=== PATIENT | female | born 1995 | race Caucasian/White ===

== ENCOUNTER 2019-02-16 16:00 | Emergency (ER) | payer OTHER ==
--- NOTE | 2019-02-16 16:08 | PDOC ---
History of Present Illness - General Chief Complaint: Pain Stated Complaint: LEFT LOWER MID BACK PAIN Time Seen by Provider: 02/16/19 16:02 - History of Present Illness Initial Comments: Ms. Damon is a 23 y/o female with PMH significant for asthma, presenting today with left flank pain. Pain began last night and has increased in severity. Describes the pain as a pressure sensation, with occasional 'stabbing' sensations. Pain increases with movements and did not decrease after a dose of ibuprofen earlier today. Pt denies dysuria, but states that her urine smells and was an orange color this morning. Her last period began on 02/09. Pt endorses nausea since last night, chills and slight lightheadedness. Denies fever, vomiting, diarrhea or headaches. Past History - Past Medical History Allergies/Adverse Reactions: Allergies Allergy/AdvReac Type Severity Reaction Status Date / Time Penicillins Allergy Verified 02/16/19 16:01 Home Medications: Ambulatory Orders Dupilumab [Dupixent] 200 mg IM ASDIR 02/16/19 Escitalopram Oxalate [Lexapro -] 20 mg PO DAILY 02/16/19 Ibuprofen 400 mg PO ONCE 02/16/19 Naproxen 500 mg PO BID PRN #12 tablet 02/16/19 Review of Systems - Review of Systems Comments:: GENERAL/CONSTITUTIONAL: No fever or chills. No weakness._ HEAD, EYES, EARS, NOSE AND THROAT: No change in vision. No change in hearing. No sore throat._ CARDIOVASCULAR: No chest pain or shortness of breath_ RESPIRATORY: Denies cough, hemoptysis_ GASTROINTESTINAL: No nausea, vomiting, diarrhea or constipation._ GENITOURINARY: No dysuria. Reports frequency and orange colored urine. MUSCULOSKELETAL: Reports left flank pain. SKIN: No rash_ NEUROLOGIC: No headache, vertigo, loss of consciousness, or change in strength/ sensation._ ENDOCRINE: No increased thirst. No abnormal weight change_ HEMATOLOGIC/LYMPHATIC: No anemia, easy bleeding, or history of blood clots._ ALLERGIC/IMMUNOLOGIC: No hives or skin allergy._ *Physical Exam - Physical Exam Comments: GENERAL: Awake, alert, and oriented to person/place/time, in no acute distress_ HEAD: No signs of trauma, normocephalic, atraumatic _ EYES: PERRLA, EOMI, sclera anicteric, conjunctiva clear_ ENT: Hearing grossly normal, nares patent, oropharynx clear without exudates. No uvular deviation. Moist mucosa_ NECK: Normal ROM, supple, no lymphadenopathy, JVD, or masses_ LUNGS: No distress, speaks in full sentences, clear to auscultation bilaterally _ HEART: Regular rate and rhythm, normal S1 and S2, no murmurs appreciated, peripheral pulses normal and equal bilaterally._ ABDOMEN: Soft, nontender, normoactive bowel sounds. No guarding, no rebound. No masses_ BACK: Left flank TTP. No bruising. No masses. EXTREMITIES: Normal inspection, Normal range of motion, no edema. No clubbing or cyanosis_ NEUROLOGICAL: Cranial nerves II through XII grossly intact. Normal speech, normal gait, no focal sensorimotor deficits _ SKIN: Warm, Dry, normal turgor, no rashes or lesions noted_ PELVIC: External inspection shows no ulcers, lesions, or rash. Os closed. No bleeding or purulent discharge. No CMT. Left adnexal tenderness present. ED Treatment Course - LABORATORY CBC & Chemistry Diagram: 02/16/19 17:05 02/16/19 17:05 Medical Decision Making - Medical Decision Making 02/16/19 16:08 23F hx of asthma, presenting today with left sided flank pain. -CBC, CMP -UA, UCx, Upreg -CT spiral renal stone -fluids, tylenol, zofran 02/16/19 17:33 Labs reviewed and wnl. UA does not show signs of UTI. 02/16/19 18:30 Left adnexal tenderness on pelvic exam. -will order TVUS 02/16/19 18:40 CT abd pelv shows no acute abdominal or pelvic pathology, no renal stones or evidence of obstructive uropathy. 02/16/19 1900 Pt signed out to Dr. Faria. Discharge - Discharge Information Problems reviewed: Yes Clinical Impression/Diagnosis: Back pain Qualifiers: Back pain location: low back pain Chronicity: acute Back pain laterality: midline Sciatica presence: without sciatica Qualified Code(s): M54.5 - Low back pain Condition: Good Disposition: HOME - Admission No - Additional Discharge Information Prescriptions: Naproxen 500 mg PO BID PRN #12 tablet PRN Reason: Pain - Follow up/Referral - Patient Discharge Instructions Patient Printed Discharge Instructions: DI for Low Back Pain - Post Discharge Activity
[2019-02-16 16:18] VITALS: BP 118/82; PULSE 89; TEMP 98; BMI 28.9
[2019-02-16] MEDS ORDERED: ACETAMINOPHEN 1000 MG/100 ML VIAL (NON FORMULARY) IVPB ONE (17:09)
[2019-02-16] MEDS ORDERED: SODIUM CHLORIDE 0.9% 500 ML INFUS.BAG IV ONE (17:09)
[2019-02-16] MEDS ORDERED: ONDANSETRON 4 MG/2 ML VIAL IVPUSH ONE (17:09)
[2019-02-16] MEDS ORDERED: ACETAMINOPHEN INJECTION 100 ML IVPB ONE (17:10)
[2019-02-16] MEDS ORDERED: ONDANSETRON 4 MG/2 ML VIAL ONE (17:10)
[2019-02-16 17:24] LABS: HEMOGLOBIN 13.9 GM/dl (10.7-15.3); MCH 29.3 pg (25.7-33.7); MONO % 6.1 % (3.8-10.2); RBC 4.76 M/mm3 (3.60-5.2)
[2019-02-16 17:26] LABS: BASO % 0.7 % (0-2.0); EOS % 17.8 % (0-4.5); LYMPH % 26.4 % (8-40); MCHC 33.2 g/dl (32.0-36.0); MEAN CELL VOLUME 88.3 fl (80-96); PLATELET COUNT 235 K/MM3 (134-434); RDW 12.7 % (11.6-15.6); WHITE BLOOD COUNT 10.4 K/mm3 (4.0-10.8)
[2019-02-16 17:31] LABS: ALBUMIN 4.5 g/dl (3.4-5.0); BILIRUBIN,TOTAL 0.4 mg/dl (0.2-1); CALCIUM 9.4 mg/dl (8.5-10); CREATININE 0.7 mg/dl (0.55-1.3); POTASSIUM 3.7 mmol/L (3.5-5.1); TOT PROT 7.5 g/dl (6.4-8.2)
--- NOTE | 2019-02-16 17:39 | PDOC ---
Attending Attestation - Resident Resident Name: Efrain Tanner - ED Attending Attestation I have performed the following: I have examined & evaluated the patient, The case was reviewed & discussed with the resident, I agree w/resident's findings & plan, Exceptions are as noted - HPI HPI: 02/16/19 17:36 23-year-old female history of eczema and asthma here today complaining of left flank left lower quadrant left upper quadrant pain. Patient states her symptoms started yesterday evening described as sharp and intermittent she does have associated nausea and vomiting. Denies any fever she has had some strong smelling urine but denies dysuria no noted hematuria denies any vaginal discharge or any concerns for STD. Her last period was 3 weeks ago states she is not currently no known history of renal colic however she does have a family history of kidney stones. She is on immune suppressant for her eczema - Physicial Exam PE: 02/16/19 17:37 awake alert lungs clear bilat heart rrr nomrg abd soft mild left mid quad, left upper quad ttp, pos left cva tenderness. skin warm and dry. nuero alert oriented x 3. 02/16/19 18:22 pelvic exam no discharge noted in vaginal vault, mild ttp left adnexal. ua negative. labs normal. ct read pending. consider tvus left ovary if ct unremarkable. - Medical Decision Making 02/16/19 17:38 23 yo with left sided abd/ flank pain, differential renal colic, uti pyelo. plan bedside renal us. possible ct a/p focused ED us renal, mild hydro left kidney. right kidney normal. bladder nondistended. will obtain spiral ct r/o stone. ua pending. ucg. basic labs. given zofran and pain control ivf. 02/16/19 19:13 ct a/p unremarkable. will obtain tvus r/o torsion/ free fluid. uua and labs unremarakble. signed out to oncoming physician pending TVUS.
[2019-02-16] MEDS ORDERED: KETOROLAC TROMETHAMINE 15 MG/ML VIAL IVPUSH ONE (20:52)
[2019-02-16] MEDS ORDERED: KETOROLAC TROMETHAMINE 15 MG/ML VIAL ONE (20:54)
--- NOTE | 2019-02-16 21:03 | PDOC ---
History of Present Illness - General Chief Complaint: Pain Stated Complaint: LEFT LOWER MID BACK PAIN Time Seen by Provider: 02/16/19 16:02 Past History - Past Medical History Allergies/Adverse Reactions: Allergies Allergy/AdvReac Type Severity Reaction Status Date / Time Penicillins Allergy Verified 02/16/19 16:01 Home Medications: Ambulatory Orders Dupilumab [Dupixent] 200 mg IM ASDIR 02/16/19 Escitalopram Oxalate [Lexapro -] 20 mg PO DAILY 02/16/19 Ibuprofen 400 mg PO ONCE 02/16/19 Naproxen 500 mg PO BID PRN #12 tablet 02/16/19 COPD: No Psychiatric Problems: Yes - Psycho Social/Smoking Cessation Hx Smoking History: Current every day smoker Have you smoked in the past 12 months: Yes Number of Cigarettes Smoked Daily: 0 Information on smoking cessation initiated: Yes Hx Alcohol Use: No Drug/Substance Use Hx: No *Physical Exam - Vital Signs Last Vital Signs Temp Pulse Resp BP Pulse Ox 98 F 89 20 118/82 97 02/16/19 16:01 02/16/19 16:01 02/16/19 16:01 02/16/19 16:01 02/16/19 16:01 ED Treatment Course - LABORATORY CBC & Chemistry Diagram: 02/16/19 17:05 02/16/19 17:05 - ADDITIONAL ORDERS Additional order review: Laboratory Results 02/16/19 02/16/19 02/16/19 17:05 17:00 17:00 Sodium 135 L Potassium 3.7 Chloride 100 Carbon Dioxide 24 Anion Gap 11 BUN 11.0 Creatinine 0.7 Est GFR (CKD-EPI)AfAm 143.54 Est GFR (CKD-EPI)NonAf 123.85 Random Glucose 95 Calcium 9.4 Total Bilirubin 0.4 AST 22 ALT 17 Alkaline Phosphatase 82 Total Protein 7.5 Albumin 4.5 Urine Color Yellow Urine Appearance Clear Urine pH 7.0 Urine Protein Trace Urine Glucose (UA) Negative Urine Ketones 2+ H Urine Blood Negative Urine Nitrite Negative Urine Bilirubin Negative Urine Urobilinogen 0.2 Ur Leukocyte Esterase Negative Urine HCG, Qual Negative 02/16/19 17:05 RBC 4.76 MCV 88.3 MCHC 33.2 RDW 12.7 MPV 11.0 Neutrophils % 49.0 Lymphocytes % 26.4 Monocytes % 6.1 Eosinophils % 17.8 H Basophils % 0.7 - Medications Given in the ED: ED Medications Discontinued Medications Generic Name Dose Route Start Last Admin Trade Name Ramona PRN Reason Stop Dose Admin Acetaminophen 1,000 mg 02/16/19 17:09 02/16/19 17:13 Ofirmev Injection - IVPB 02/16/19 17:10 1,000 mg ONCE ONE Administration Ketorolac Tromethamine 15 mg 02/16/19 20:52 02/16/19 20:56 Toradol Injection - IVPUSH 02/16/19 20:53 15 mg ONCE ONE Administration Ondansetron HCl 4 mg 02/16/19 17:09 02/16/19 17:13 Zofran Injection IVPUSH 02/16/19 17:10 4 mg ONCE ONE Administration Sodium Chloride 1,000 ml 02/16/19 17:09 02/16/19 17:13 Normal Saline - IV 02/16/19 17:10 1,000 ml ONCE ONE Administration Medical Decision Making - Medical Decision Making 02/17/19 06:23 received on signout imaging, labs reviewed no specific etiology of pain discovered nsaids, PCP fu Discharge - Discharge Information Problems reviewed: Yes Clinical Impression/Diagnosis: Back pain Qualifiers: Back pain location: low back pain Chronicity: acute Back pain laterality: midline Sciatica presence: without sciatica Qualified Code(s): M54.5 - Low back pain Condition: Good Disposition: HOME - Admission No - Additional Discharge Information Prescriptions: Naproxen 500 mg PO BID PRN #12 tablet PRN Reason: Pain - Follow up/Referral - Patient Discharge Instructions Patient Printed Discharge Instructions: DI for Low Back Pain - Post Discharge Activity
== END 2019-02-16 21:05 | disposition home or self-care (01) ==
LOC: FER 16:00
PROC: 3E0337Z Introduction of Electrolytic and Water Balance Substance into Peripheral Vein, Percutaneous Approach (ICD-10-PCS; principal; 2019-02-16)
PROC: 3E033NZ Introduction of Analgesics, Hypnotics, Sedatives into Peripheral Vein, Percutaneous Approach (ICD-10-PCS; 2019-02-16)
PROC: 3E0337Z Introduction of Electrolytic and Water Balance Substance into Peripheral Vein, Percutaneous Approach (ICD-10-PCS; 2019-02-16)
PROC: 3E033GC Introduction of Other Therapeutic Substance into Peripheral Vein, Percutaneous Approach (ICD-10-PCS; 2019-02-16)
DX: M54.5 Low back pain (principal)
CPT/HCPCS: 36415; 74176-TC; 76830-TC; 80053; 81003; 84703; 85025; 87086; 99284-25; J0131

== ENCOUNTER 2019-04-09 16:52 | Emergency (ER) | payer OTHER ==
[2019-04-09] MEDS ORDERED: ONDANSETRON 4 MG/2 ML VIAL IVPB ONE (16:59)
[2019-04-09] MEDS ORDERED: SODIUM CHLORIDE 1,000 ML IV STA (16:59)
[2019-04-09 17:02] VITALS: BP 109/59; PULSE 90; TEMP 98.2; BMI 30.2
[2019-04-09] MEDS ORDERED: ONDANSETRON 4 MG/2 ML VIAL ONE (17:02)
[2019-04-09 17:33] LABS: EPITHELIAL CELLS MODERATE /hpf
--- NOTE | 2019-04-09 17:41 | PDOC ---
Documentation entered by Enedelia Carr SCRIBE, acting as scribe for Albaro Ramires MD. Albaro Ramires MD: This documentation has been prepared by the sherifeLilly Joy, SCRIBE, under my direction and personally reviewed by me in its entirety. I confirm that the documentation accurately reflects all work, treatment, procedures, and medical decision making performed by me. History of Present Illness - General Chief Complaint: Nausea/Vomiting Stated Complaint: n/v Time Seen by Provider: 04/09/19 16:53 History Source: Patient Exam Limitations: No Limitations - History of Present Illness Initial Comments: 04/09/19 17:09 The patient is a 23 year old female with significant past medical history of eczema and asthma who presents to the ED with nausea, vomiting, diarrhea and abdominal pain that started this morning. As per patient, she endorses multiple episodes of vomiting, NBNB after eating or drinking and states that everything comes out. Patient reports feeling chills and pain around her epigastric area. Patient adds that she took pepto-bismol with no relief. The patient denies sick contact. Denies recent travel. Denies burning urination. Denies . Denies any other symptoms. Allergies: Penicillins Past History - Past Medical History Allergies/Adverse Reactions: Allergies Allergy/AdvReac Type Severity Reaction Status Date / Time Penicillins Allergy Verified 04/09/19 16:53 Home Medications: Ambulatory Orders Escitalopram Oxalate [Lexapro -] 20 mg PO DAILY 02/16/19 Ondansetron [Zofran *Odt*] 4 mg SL TID #10 od.tablet 04/09/19 COPD: No Psychiatric Problems: Yes - Psycho Social/Smoking Cessation Hx Smoking History: Current every day smoker Have you smoked in the past 12 months: Yes Number of Cigarettes Smoked Daily: 1 Information on smoking cessation initiated: Yes Hx Alcohol Use: Yes (ocasional) Drug/Substance Use Hx: Yes (marijuana) Review of Systems - Review of Systems Able to Perform ROS?: Yes Comments:: 04/09/19 17:09 GENERAL/CONSTITUTIONAL: +Chills. No fever or weakness. HEAD, EYES, EARS, NOSE AND THROAT: No change in vision. No ear pain or discharge. No sore throat. CARDIOVASCULAR: No chest pain or shortness of breath. RESPIRATORY: No cough, wheezing, or hemoptysis. GASTROINTESTINAL: +Nausea, vomiting, and diarrhea. MUSCULOSKELETAL: No joint or muscle swelling or pain. No neck or back pain. SKIN: No rash NEUROLOGIC: No headache, vertigo, loss of consciousness, or change in strength/ sensation. ENDOCRINE: No increased thirst. No abnormal weight change. HEMATOLOGIC/LYMPHATIC: No anemia, easy bleeding, or history of blood clots. ALLERGIC/IMMUNOLOGIC: No hives or skin allergy. *Physical Exam - Vital Signs Last Vital Signs Temp Pulse Resp BP Pulse Ox 98.2 F 90 15 109/59 L 100 04/09/19 16:53 04/09/19 16:53 04/09/19 16:53 04/09/19 16:53 04/09/19 16:53 - Physical Exam 04/09/19 17:11 GENERAL: Awake, alert, and fully oriented, in no acute distress HEAD: No signs of trauma EYES: PERRLA, EOMI, sclera anicteric, conjunctiva clear ENT: Auricles normal inspection, hearing grossly normal, nares patent, oropharynx clear without exudates. Moist mucosa NECK: Normal ROM, supple, no lymphadenopathy, JVD, or masses LUNGS: Breath sounds equal, clear to auscultation bilaterally. No wheezes, and no crackles HEART: Regular rate and rhythm, normal S1 and S2, no murmurs, rubs or gallops ABDOMEN: +Mild epigastric tenderness. Normoactive bowel sounds. No guarding, no rebound. No masses EXTREMITIES: Normal range of motion, no edema. No clubbing or cyanosis. No cords, erythema, or tenderness NEUROLOGICAL: Cranial nerves II through XII grossly intact. Normal speech, normal gait SKIN: Warm, Dry, normal turgor, no rashes or lesions noted. ED Treatment Course - ADDITIONAL ORDERS Additional order review: Laboratory Results 04/09/19 04/09/19 17:10 17:10 Urine Color Yellow Urine Appearance Slightly Urine pH 6.0 Urine Protein Trace Urine Glucose (UA) Negative Urine Ketones 3+ H Urine Blood Negative Urine Nitrite Negative Urine Bilirubin Negative Urine Urobilinogen 0.2 Ur Leukocyte Esterase Trace H Urine HCG, Qual Negative - Medications Given in the ED: ED Medications Discontinued Medications Generic Name Dose Route Start Last Admin Trade Name Freq PRN Reason Stop Dose Admin Ondansetron HCl 4 mg 04/09/19 16:59 04/09/19 17:07 Zofran Injection IVPB 04/09/19 17:00 4 mg ONCE ONE Administration ED Progress Note - Progress Note Progress Note: 04/09/19 17:34 After 1 liter NS and IV Zofran, pt is doing better. Will discharge home on Zofran. If worsen return to ER Pt is in agreement with plan Exam: Abd: soft, no RLQ, LLQ RUQ or LUQ tenderness +BS Discharge - Discharge Information Problems reviewed: Yes Clinical Impression/Diagnosis: Dehydration, Viral gastroenteritis Condition: Improved Disposition: HOME - Admission No - Follow up/Referral - Patient Discharge Instructions Patient Printed Discharge Instructions: DI for Dehydration -- Child, DI for Viral Gastroenteritis -- Adult Additional Instructions: Fluids, rest, Tylenol Zofran 4 mg ODT 1 tab every 8 hr as needed If worsen return to ER - Post Discharge Activity
== END 2019-04-09 17:48 | disposition home or self-care (01) ==
LOC: FER 16:52
PROC: 3E033GC Introduction of Other Therapeutic Substance into Peripheral Vein, Percutaneous Approach (ICD-10-PCS; principal; 2019-04-09)
PROC: 3E0337Z Introduction of Electrolytic and Water Balance Substance into Peripheral Vein, Percutaneous Approach (ICD-10-PCS; 2019-04-09)
DX: E86.0 Dehydration (principal); A08.4 Viral intestinal infection, unspecified; F17.210 Nicotine dependence, cigarettes, uncomplicated; J45.909 Unspecified asthma, uncomplicated; Z88.0 Allergy status to penicillin
CPT/HCPCS: 81003; 81015; 84703; 99283-25; J7030